=== PATIENT | male | born 1995 | race Caucasian/White ===

== ENCOUNTER 2019-05-13 10:49 | Emergency (ER) | payer OTHER ==
[~2019-05-13] VITALS: Ht 175.3 cm; Wt 65.9 kg
[2019-05-13 10:55] VITALS: BP 128/69; TEMP 97.6
[2019-05-13 11:19] LABS: COLLECTION METHOD CLEAN CATCH
[2019-05-13 11:25] LABS: MUCOUS Present /lpf; PH 6 (5-8); SQUAMOUS EPITHELIAL None Seen /hpf; URINE APPEARANCE Clear; URINE BACTERIA None Seen /hpf; URINE BILIRUBIN Negative (NEGATIVE); URINE BLOOD 2+ (NEGATIVE); URINE COLOR Yellow; URINE GLUCOSE Negative (NEGATIVE); URINE KETONE Negative (NEGATIVE); URINE LEUKOCYTE ESTERASE Negative (NEGATIVE); URINE NITRATE Negative (NEGATIVE); URINE PROTEIN(semi-quant) Negative (NEGATIVE); URINE RBC >50 /hpf; URINE UROBILINOGEN Negative (NEGATIVE)
[2019-05-13 11:36] LABS: BASO # 0.1 (0.0-0.2); BASO % 1.2 % (0.0-2.0); EOS # 0.1 (0.0-0.7); EOS % 2.2 % (0-4.0); GRAN # 3.5 (1.4-6.5); GRAN % 58.4 % (42.2-75.2); HEMATOCRIT 42.3 % (42.0-52.0); HEMOGLOBIN 14.3 g/dl (13.5-18.0); LYMPH # 1.8 (1.2-3.4); LYMPH % 30.8 % (20.0-51.0); MEAN CELL VOLUME 87 fl (80.0-100.0); MEAN CORPUSCULAR HEMOGLOBIN 30 pg (27.0-31.0); MEAN CORPUSCULAR HGB CONC 34 g/dl (33.0-37.0); MEAN PLATELET VOLUME 9.3 fl (7.4-10.4); MONO # 0.4 (0.1-0.6); MONO % 7.1 % (1.7-9.3); PLATELET COUNT 293 K/mm3 (130-400); RED BLOOD COUNT 4.85 M/mm3 (4.20-5.60); REDCELL DISTRIBUTION WIDTH-CV 12.1 % (11.5-14.5)
[2019-05-13 11:46] LABS: ALBUMIN 4.7 gm/dL (3.5-5.0); BILIRUBIN,TOTAL 1.2 mg/dL (0.0-1.0); CALCIUM 9.8 mg/dL (8.4-10.2); CREATININE, serum 0.84 (0.66-1.25); POTASSIUM 4.1 mmol/L (3.4-5.0); TOTAL PROTEIN 7.4 gm/dL (6.4-8.2)
[2019-05-13] MEDS ORDERED: NORCO 325 MG-51 TAB PO (12:42)
[2019-05-13] MEDS ORDERED: FLOMAX 0.40.4 MG/CAP PO (12:42)
[2019-05-13] MEDS ORDERED: ZOFRAN 4MG T4 MG/TAB PO (12:42)
[2019-05-13 13:02] VITALS: PULSE 55
== END 2019-05-13 13:02 | disposition home or self-care (01) ==
LOC: COL.ER 10:49
PROVIDERS: Nurse Practitioner Primary Care
DX: N20.0 Calculus of kidney (principal)
CPT/HCPCS: J1885; J2405

== ENCOUNTER 2019-05-21 06:15 | Emergency (ER) | payer OTHER ==
[~2019-05-21] VITALS: Ht 175.3 cm; Wt 65.9 kg
[~2019-05-21 06:15] MED LIST: FLOMAX 0.40.4 MG/CAP PO; NORCO 325 MG-51 TAB PO; ZOFRAN 4MG T4 MG/TAB PO
[2019-05-21 06:24] LABS: COLLECTION METHOD CLEAN CATCH
[2019-05-21 06:29] LABS: PH 6 (5-8); SQUAMOUS EPITHELIAL None Seen /hpf; URINE APPEARANCE Clear; URINE BACTERIA None Seen /hpf; URINE BILIRUBIN Negative (NEGATIVE); URINE BLOOD 3+ (NEGATIVE); URINE COLOR Straw; URINE GLUCOSE Negative (NEGATIVE); URINE KETONE Negative (NEGATIVE); URINE LEUKOCYTE ESTERASE Negative (NEGATIVE); URINE NITRATE Negative (NEGATIVE); URINE PROTEIN(semi-quant) Negative (NEGATIVE); URINE RBC 0-2 /hpf; URINE UROBILINOGEN Negative (NEGATIVE)
[2019-05-21 06:44] LABS: BASO # 0.1 (0.0-0.2); BASO % 0.8 % (0.0-2.0); EOS # 0.3 (0.0-0.7); EOS % 3.6 % (0-4.0); GRAN # 3.5 (1.4-6.5); GRAN % 48.7 % (42.2-75.2); HEMATOCRIT 40.2 % (42.0-52.0); HEMOGLOBIN 13.8 g/dl (13.5-18.0); LYMPH # 2.8 (1.2-3.4); LYMPH % 38.5 % (20.0-51.0); MEAN CELL VOLUME 86 fl (80.0-100.0); MEAN CORPUSCULAR HEMOGLOBIN 29 pg (27.0-31.0); MEAN CORPUSCULAR HGB CONC 34 g/dl (33.0-37.0); MEAN PLATELET VOLUME 9.7 fl (7.4-10.4); MONO # 0.6 (0.1-0.6); MONO % 8.1 % (1.7-9.3); PLATELET COUNT 248 K/mm3 (130-400); REDCELL DISTRIBUTION WIDTH-CV 11.9 % (11.5-14.5)
[2019-05-21] MEDS ORDERED: ZOFRAN 4MG T4 MG/TAB PO (06:54)
[2019-05-21] MEDS ORDERED: NORCO 325 MG-51 TAB PO (06:54)
[2019-05-21 07:05] LABS: ALBUMIN 4.7 gm/dL (3.5-5.0); BILIRUBIN,TOTAL 2.5 mg/dL (0.0-1.0); CALCIUM 9.5 mg/dL (8.4-10.2); CREATININE, serum 0.86 (0.66-1.25); POTASSIUM 3.7 mmol/L (3.4-5.0); TOTAL PROTEIN 7.6 gm/dL (6.4-8.2)
[2019-05-21 07:48] VITALS: BP 116/74; PULSE 69; TEMP 98.2
== END 2019-05-21 07:44 | disposition home or self-care (01) ==
LOC: COL.ER 06:15
PROVIDERS: Emergency Medicine
DX: N23 Unspecified renal colic (principal); F41.9 Anxiety disorder, unspecified; Z87.442 Personal history of urinary calculi
CPT/HCPCS: J2270; J2405; J7030

== ENCOUNTER 2019-05-22 19:09 | Observation (INO) | payer OTHER ==
[~2019-05-22] VITALS: Ht 175.3 cm; Wt 65.5 kg
[2019-05-22 19:59] LABS: BASO # 0.1 (0.0-0.2); BASO % 0.5 % (0.0-2.0); EOS # 0.1 (0.0-0.7); EOS % 0.6 % (0-4.0); GRAN # 14.8 (1.4-6.5); GRAN % 81.9 % (42.2-75.2); HEMATOCRIT 37.7 % (42.0-52.0); HEMOGLOBIN 13.6 g/dl (13.5-18.0); LYMPH # 1.9 (1.2-3.4); LYMPH % 10.4 % (20.0-51.0); MEAN CELL VOLUME 83 fl (80.0-100.0); MEAN CORPUSCULAR HEMOGLOBIN 30 pg (27.0-31.0); MEAN CORPUSCULAR HGB CONC 36 g/dl (33.0-37.0); MEAN PLATELET VOLUME 10.2 fl (7.4-10.4); MONO # 1.1 (0.1-0.6); MONO % 6.2 % (1.7-9.3); PLATELET COUNT 272 K/mm3 (130-400); RED BLOOD COUNT 4.54 M/mm3 (4.20-5.60); REDCELL DISTRIBUTION WIDTH-CV 11.6 % (11.5-14.5)
[2019-05-22 20:07] LABS: ALBUMIN 5.1 gm/dL (3.5-5.0); BILIRUBIN,TOTAL 3.5 mg/dL (0.0-1.0); CREATININE, serum 1.22 (0.66-1.25); POTASSIUM 3.5 mmol/L (3.4-5.0)
[2019-05-22 20:33] LABS: COLLECTION METHOD CLEAN CATCH
[2019-05-22 20:41] LABS: PH 6 (5-8); SQUAMOUS EPITHELIAL None Seen /hpf; URINE APPEARANCE Clear; URINE BACTERIA None Seen /hpf; URINE BILIRUBIN Negative (NEGATIVE); URINE BLOOD 2+ (NEGATIVE); URINE COLOR Straw; URINE GLUCOSE Negative (NEGATIVE); URINE KETONE 1+ (NEGATIVE); URINE LEUKOCYTE ESTERASE Negative (NEGATIVE); URINE NITRATE Negative (NEGATIVE); URINE PROTEIN(semi-quant) Negative (NEGATIVE); URINE RBC None Seen /hpf; URINE UROBILINOGEN Negative (NEGATIVE)
--- NOTE | 2019-05-22 22:45 | NUR ---
Pt arrived via stretcher from ER. No distress noted. Ambulated without difficulty to bed. Pt voiding in urinal-clear yellow urine. Straining urine. Pt reports minimal pain in RLQ. Abdomen soft, nontender. BS+. Lungs clear. Respirations even and unlabored. Plan of care reviewed. No needs noted currently. Will continue to monitor.
[2019-05-22 22:50] VITALS: BP 126/57; PULSE 65; TEMP 97.8
[2019-05-23] VITALS (9 sets, daily range): BP systolic 119–128; BP diastolic 46–73; PULSE 50–75; TEMP 97.6–98.4
[2019-05-23] MEDS ORDERED: XANAX 0.5MG0.5 MG PO (01:05)
--- NOTE | 2019-05-23 06:00 | NUR ---
Pt resting this AM. He has slept well throughout the night without complaints of pain or nausea. Voiding clear, yellow urine. Urine strained with no stone noted. Preop medications given. No needs noted.
--- NOTE | 2019-05-23 07:30 | NUR ---
To surgery per bed with OR staff.
--- NOTE | 2019-05-23 08:55 | NUR ---
Received patient from PACU per bed. Alert. No c/o pain or nausea. VSS. Ambulatory to bathroom and voided large amount light red urine.
--- NOTE | 2019-05-23 12:40 | NUR ---
Urinary pain improved after prn [place]. Voiding large amounts urine. VSS. Dismissed to home with family.
== END 2019-05-23 12:40 | disposition home or self-care (01) ==
LOC: COL.ER 19:09 → SURG 22:16
PROVIDERS: Emergency Medicine; Nurse Practitioner; ADMIT Urology
DX: N20.1 Calculus of ureter (principal); F41.9 Anxiety disorder, unspecified
CPT/HCPCS: A4216; C1769; G0378; J0690; J0696; J1170; J2405; J2704; J3010; J7030; J7120; Q9967